=== PATIENT | male | born 1980 | race Two or more races ===

== ENCOUNTER 2018-06-27 16:16 | Emergency (ER) | payer SELFPAY ==
[2018-06-27 16:23] VITALS: BP 136/84; RESP 16; TEMP 98.1; O2SAT 98
[2018-06-27 16:24] VITALS: PULSE 88
--- NOTE | 2018-06-27 16:49 | ED PDOC ---
HPI:STROKE - Time Time: 16:19 - Historian Historian: Patient - Chief Complaint Chief Complaint: Numbness (left side) - Onset Onset: Hours (1.5 hours) - Severity of pain Maximum severity:: Moderate Severity Current: Moderate - Notes: Notes:: 37 year old male with a past medical history of sickle cell anemia, stroke, and heart attack (currently taking plavix, hydroxyurea, 8 mg dilaudid, and benadryl) presents to the ED with left sided numbness that he has been experiencing for 1.5 hours. Patient states that he flew in from [place], [place] 1.5 hours ago, which is when he began experiencing symptoms. Patient denies having any other complaints. PMD: None provided. rTPA Inclusion/Exclusion - Refusal of Treatment Patient Refused Treatment: Yes Past Medical History Reviewed: Historical Data, Nursing Documentation, Vital Signs Vital Signs: Last Vital Signs Temp 98.1 F 06/27/18 16:19 Pulse 88 06/27/18 16:19 Resp 16 06/27/18 16:19 BP 136/84 06/27/18 16:19 Pulse Ox 98 06/27/18 16:19 - Medical History PMH: Sickle Cell Disease - Family History Family History: States: No Known Family Hx - Allergies Allergies/Adverse Reactions: Allergies Allergy/AdvReac Type Severity Reaction Status Date / Time haloperidol [From Haldol] Allergy REDNESS Verified 06/27/18 16:19 iodine Allergy RASH Verified 06/27/18 16:19 NSAIDS (Non-Steroidal Allergy RASH Verified 06/27/18 16:19 Anti-Inflamma risperidone [From Risperdal] Allergy RASH Verified 06/27/18 16:19 Review of Systems ROS Statement: Except As Marked, All Systems Reviewed And Found Negative Neurological: Positive for: Numbness (left side) Physical Exam - Reviewed Nursing Documentation Reviewed: Yes Vital Signs Reviewed: Yes (patient choosing to leave prior to physical exam) - ECG O2 Sat by Pulse Oximetry: 98 (RA) Pulse Ox Interpretation: Normal Medical Decision Making Medical Decision Makin:19 Initial impression: 37 year old male with left sided numbness. Initial plan: * CT head w/o contrast * XRay chest portable * EKG * type and screen * CMP * hemoglobin * lipid panel * troponin I * CBC w/ diff * PT and PTT * glucose * reevaluation Patient is refusing to get a head CT without dilaudid and benadryl. 16:35 Patient returns to room, states that he is refusing to get blood work, to have his blood drawn, and to have a head CT prior to receiving narcotic pain medication. It was explained to patient that we are a dilaudid free emergency room. Patient is choosing to leave the ED. Pt ambulated out of ED without difficulty. Scribe Attestation: Documented byOksana Malik, acting as a scribe for Indu Mcnamara MD. Provider Scribe Attestation: All medical record entries made by the Scribe were at my direction and personally dictated by me. I have reviewed the chart and agree that the record accurately reflects my personal performance of the history, physical exam, medical decision making, and the department course for this patient. I have also personally directed, reviewed, and agree with the discharge instructions and disposition. Disposition - Clinical Impression Clinical Impression: Weakness of one side of body - Disposition Disposition: Left W/O Treatment Disposition Time: 17:05 Condition: UNKNOWN Forms: itsDapper ([place])
== END 2018-06-27 17:04 | disposition left against medical advice (07) ==
LOC: H.ER 16:16
DX: R53.1 Weakness (principal)